=== PATIENT | female | born 1995 | race Caucasian/White ===

== ENCOUNTER 2023-09-14 08:52 | Day surgery (SDC) | payer MEDICAID ==
[~2023-09-14] VITALS: Ht 162.6 cm; Wt 68.9 kg
[2023-09-14 09:46] LABS: HEMATOCRIT 43.5 % (36-48); HEMOGLOBIN 14.9 g/dL (12.0-16.0); MEAN CORPUSCULAR HEMOGLOBIN 31 pg (27-31); MEAN CORPUSCULAR HGB CONC 34 % (32-36); MEAN CORPUSCULAR VOLUME 90 fL (79.0-98.0); PLATELET COUNT (AUTO) 247 K/uL (130-430); RED BLOOD CELL COUNT(AUTO) 4.81 MIL/uL (4.2-6.2); RED CELL DISTRIBUTION WIDTH 13.5 % (9.0-15.0); WHITE BLOOD COUNT (AUTO) 3.2 K/uL (4.8-10.8)
[2023-09-14 09:54] LABS: CALCIUM 9.6 mg/dL (8.4-11.0); CREATININE 0.63 mg/dL (0.55-1.30); POTASSIUM 4.8 mmol/L (3.5-5.1)
[2023-09-14 10:53] LABS: ATYPICAL LYMPHOCYTES % 40 % (0-0); BAND % (MANUAL) 0 % (0-6); BASOPHILS % (MANUAL) 0 % (0-2); EOSINOPHILS % (MANUAL) 3 % (0-7); LYMPHOCYTES % (MANUAL) 32 % (20-46); MONOCYTES % (MANUAL) 5 % (0-11)
[2023-09-14 10:54] LABS: PLATELET ESTIMATE ADEQUATE (ADEQUATE)
[2023-09-14 11:30] VITALS: O2SAT 100
[2023-09-14] MEDS ORDERED: ACETAMINOPHEN I.V. 1000 MG 100 ML IV ONE (11:55)
[2023-09-14] MEDS ORDERED: HYDROmorphone 1 MG/ML INJ. CARTRIDGE IVP PRN ×2 (12:15)
[2023-09-14] MEDS ORDERED: LABETALOL 100 MG/ 20ML VIAL IVP PRN (12:15)
[2023-09-14] MEDS ORDERED: MEPERIDINE HCL/PF 25 MG/ML DISP.SYRIN IVP PRN (12:15)
[2023-09-14] MEDS ORDERED: hydrALAZINE HCL 20 MG/ML VIAL IVP PRN (12:15)
[2023-09-14] MEDS ORDERED: LR 1,000 ML IV SCH (12:15)
[2023-09-14] MEDS ORDERED: OXYMETAZOLINE HCL 0.05% NASAL SPRAY NS ONE (13:35)
[2023-09-14] MEDS ORDERED: SUGAMMADEX SODIUM 200 MG/2 ML VIAL IV ONE (13:35)
[2023-09-14] MEDS ORDERED: LR 1,000 ML IV.SOLN IV ONE (13:35)
[2023-09-14] MEDS ORDERED: PROPOFOL 200MG/ 20ML VIAL (DIPRIVAN) IV ONE (13:35)
[2023-09-14] MEDS ORDERED: MIDAZOLAM HCL 5 MG/ML VIAL (VERSED) IV ONE (13:35)
[2023-09-14] MEDS ORDERED: MUPIROCIN 2% TOPICAL OINTMENT 22 GM ONE (13:35)
[2023-09-14] MEDS ORDERED: ROCURONIUM BROMIDE 10 MG/ML (ZEMURON) ONE (13:35)
[2023-09-14] MEDS ORDERED: fentaNYL CITRATE/PF 100 MCG/2 ML AMP ONE (13:35)
[2023-09-14] MEDS ORDERED: NS IRRIG SOLN 1000 ML IR ONE (13:35)
[2023-09-14] MEDS ORDERED: LIDOCAINE 2%, 20 ML MDV ONE (13:35)
[2023-09-14] MEDS ORDERED: DEXAMETHASONE SOD PHOSPHATE 4 MG/ML VIAL ONE (13:35)
[2023-09-14] MEDS ORDERED: DESFLURANE 15 MIN GAS INH ONE (13:35)
[2023-09-14] MEDS ORDERED: WATER FOR IRRIGATION,STERILE 1,000 ML IRRIG.SOLN IR ONE (13:35)
[2023-09-14] MEDS ORDERED: ONDANSETRON HCL 4 MG/2 ML VIAL ONE (13:35)
[2023-09-14] MEDS ORDERED: LIDOCAINE/EPI 1% 1:100000 20 ML VIAL ONE (13:35)
[2023-09-14] MEDS ORDERED: EPINEPHrine HCL 1 MG/ML VIAL ONE (13:35)
[2023-09-14] MEDS ORDERED: METOCLOPRAMIDE HCL 10 MG/2 ML VIAL ONE (14:37)
[2023-09-14] MEDS: METOCLOPRAMIDE HCL 10 MG/2 ML VIAL IVP PRN (14:40)
[2023-09-14 15:02] VITALS: BP_SYST 132; PULSE 72; RESP 18
== END 2023-09-14 16:12 | disposition home or self-care (01) ==
LOC: SDS 08:52 → SMU 08:54 → SDS 16:12
PROVIDERS: ATTEND Otolaryngology
DX: D38.5 Neoplasm of uncertain behavior of other respiratory organs (principal); J32.4 Chronic pansinusitis; J34.2 Deviated nasal septum; R09.81 Nasal congestion; J30.1 Allergic rhinitis due to pollen; K21.9 Gastro-esophageal reflux disease without esophagitis; G43.909 Migraine, unspecified, not intractable, without status migrainosus; Z88.2 Allergy status to sulfonamides; Z79.899 Other long term (current) drug therapy
CPT/HCPCS: 31298; 30520; 30140; 31240; 31255; 85027; 80048; 84702; 85007; 36415; 88304; 88305; 88311; J3490; J1100; J0171; J2765; J2250; J2405; J2704; J3010; J7120; J0131; C1726; J2001